=== PATIENT | male | born 1950 | race Caucasian/White ===

== ENCOUNTER 2016-08-17 07:32 | Day surgery (SDC) | payer OTHER ==
[~2016-08-17 07:32] MED LIST: ASPIR 8181 MG PO; ELIQUIS5 MG PO; LASIX 40MG. TAB40 MG PO; LISINOPRIL 10MG10 MG PO; LORATADINE 10MG10 M1 PO; METAMUCIL3.4 GM/Dos PO; OMEPRAZOLE20 MG PO; OXYGEN IH; OXYGEN2 IH
[2016-08-17 08:02] LABS: HEMOGLOBIN 14.9 g/dL (14.1-18.0); LYMPH # 1.9 K/mm3 (0.7-4.5); LYMPH % 38.8 % (10-50)
[2016-08-17 08:12] LABS: BUN 25 mg/dL (7-18)
[2016-08-17 08:17] LABS: GFR (ESTIMATED) 41 ML/MIN (>60)
--- NOTE | 2016-08-17 11:39 | RADIOLOGY REPORT PS360 ---
CARDIAC CATHETERIZATION DATE OF CATHETERIZATION:08/17/2016 11:07 AM PROCEDURES: 1. Right heart catheterization 2. Left heart catheterization 3. Left ventriculogram 4. Selective coronary angiogram INDICATION FOR TEST: 1. Severe mitral regurgitation 2. Pulmonary hypertension 3. Preoperative evaluation for open surgical mitral valve repair Informed consent was obtained prior to the procedure. COMPLICATIONS: None ESTIMATED BLOOD LOSS: Less than 10 ml. TECHNIQUE: One percent lidocaine was used to anesthetize the right anterior aspect of the neck. The right internal jugular vein was accessed via the Seldinger technique and a 7 Chinese sheath was placed in the right internal jugular vein. 1% lidocaine was then used to anesthetize the right anterior aspect of the wrist in the right radial artery was accessed via the central technique and a 6 Chinese hydrophilic sheath was placed in the right radial artery. An arterial cocktail using 5000 units of heparin nitroglycerin and verapamil were administered intra-arterially. A Glo catheter was used to perform left heart catheterization left ventriculogram and selective coronary angiogram while the [place] catheter was used to perform right heart catheterization at the end of the procedure the arterial sheath was removed good hemostasis was achieved using TR band in the venous sheath was removed from the internal jugular vein good hemostasis was achieved using manual pressure and patient transferred the postop coronary in stable condition for postoperative care . ANGIOGRAPHIC RESULTS: 1. The left main artery normal 2. The left anterior descending artery has normal 3. The circumflex artery is non dominant and has normal 4. The right coronary artery dominant normal 5. The CAO ventriculogram reveals normal 65% The left ventricular end-diastolic pressure 10 mmHg HEMODYNAMICS: Right atrial pressure is 10 mm Hg. Pulmonary arterial pressure is 65/30 mm Hg. Pulmonary artery occlusion pressure is 30 mm Hg. SATURATIONS: RA is 77 %. PA is 78 %. IMPRESSION: 1. Normal coronary arteries 2. Normal ejection fraction 3. Severe pulmonary hypertension PLAN: 1. Patient should be a low and acceptable risk from a cardiac standpoint to proceed with surgical mitral valve repair.
[2016-08-17 14:40] LABS: ARTERIAL O2 SAT CATH LAB 78.9 % (90-100)
[2016-08-17 14:41] LABS: VENOUS O2 SAT CATH LAB 77.8 % (75-80)
[2016-08-17 14:58] VITALS: BP 111/76
== END 2016-08-17 14:58 | disposition home or self-care (01) ==
LOC: CATHLAB 07:32
PROVIDERS: Internal Medicine
PROC: B2111ZZ Fluoroscopy of Multiple Coronary Arteries using Low Osmolar Contrast (ICD-10-PCS; 2016-08-17)
PROC: B2151ZZ Fluoroscopy of Left Heart using Low Osmolar Contrast (ICD-10-PCS; 2016-08-17)
PROC: 4A023N8 Measurement of Cardiac Sampling and Pressure, Bilateral, Percutaneous Approach (ICD-10-PCS; principal; 2016-08-17 08:30)
DX: I34.0 Nonrheumatic mitral (valve) insufficiency (principal); I27.2 Other secondary pulmonary hypertension; I48.91 Unspecified atrial fibrillation; R06.02 Shortness of breath; I50.9 Heart failure, unspecified; R93.1 Abnormal findings on diagnostic imaging of heart and coronary circulation; R94.31 Abnormal electrocardiogram [ECG] [EKG]
CPT/HCPCS: C1725; C1769; C1894; J1644; Q9967

== ENCOUNTER → 2017-02-07 | Outpatient (CLI) | payer OTHER | LOC: CARL-LAB 11:18 | DX: I34.0 Nonrheumatic mitral (valve) insufficiency (principal); I48.91 Unspecified atrial fibrillation; Z95.810 Presence of automatic (implantable) cardiac defibrillator ==